=== PATIENT | male | born 1990 | race African-American/Black ===

== ENCOUNTER 2020-02-02 19:48 | Emergency (ER) | payer OTHER ==
[~2020-02-02] VITALS: Ht 167.7 cm; Wt 58.2 kg
[2020-02-02 19:58] VITALS: BP 161/81
--- NOTE | 2020-02-02 20:15 | Diagnostic Imaging Report ---
Indication: Right foot injury 3 views of the right foot show no fracture, dislocation or other acute abnormalities. IMPRESSION: Negative right foot Dictated by: Dictated on workstation # [id number]
--- NOTE | 2020-02-02 20:42 | ED Lower Extremity ---
General Chief Complaint: Lower Extremity Stated Complaint: RT FOOT/ANKLE PAIN Nursing Triage Note: pt states he wsa chasing his dog and tripped, pt rolled ankle and co right ankle and foot pain Nursing Sepsis Screen: No Definite Risk Source: patient Exam Limitations: no limitations History of Present Illness Date Seen by Provider: Feb 02, 2020 Time Seen by Provider: 19:57 Initial Comments This 29-year-old young man presents to the emergency room with right foot injury. A few hours ago he was smoking marijuana and chasing his dog through yard when he stepped in a hole and inverted his right foot. He has pain and swelling just distal to the lateral malleolus on the proximal foot. He has pain with ambulation. His ankle seems to be unaffected. He denies any other injury. Patient was noted to be tachycardic but he states he is rather anxious about being in the hospital setting. He denies being ill in any way. Patient reports prior right ankle injury. Onset: this evening Allergies and Home Medications Allergies Coded Allergies: Penicillins (Verified Allergy, Unknown, 02/02/20) Patient Home Medication List Home Medication List Reviewed: Yes Review of Systems Constitutional: no symptoms reported EENTM: no symptoms reported Respiratory: no symptoms reported Cardiovascular: no symptoms reported Gastrointestinal: no symptoms reported Genitourinary: no symptoms reported Musculoskeletal: see HPI Skin: no symptoms reported Psychiatric/Neurological: No Symptoms Reported Past Nfdcegs-Flijyx-Hbbrea Hx Past Med/Social Hx: Reviewed Nursing Past Med/Soc Hx Patient Social History Alcohol Use: Occasionally Uses Alcohol Beverage of Choice: Beer Recreational Drug Use: Yes Drug of Choice: marijuana Recent Foreign Travel: No Contact w/Someone Who Travel: No Recent Infectious Disease Expo: No Recent Hopitalizations: No Physical Abuse: No Sexual Abuse: No Mistreated: No Fear: No Seasonal Allergies Seasonal Allergies: No Past Medical History Surgeries: No Respiratory: No Cardiac: No Neurological: No Genitourinary: No Gastrointestinal: No Musculoskeletal: No Endocrine: No HEENT: No Cancer: No Psychosocial: No Integumentary: No Blood Disorders: No Physical Exam Vital Signs Vital Signs - First Documented 02/02/20 19:58 Temp 36.8 Pulse 120 Resp 16 B/P (MAP) 161/81 (107) Pulse Ox 99 O2 Delivery Room Air Capillary Refill : Less Than 3 Seconds Height, Weight, BMI Height: '" Weight: lbs. oz. kg; 20.00 BMI Method: General Appearance: WD/WN, no apparent distress HEENT: PERRL/EOMI, normal ENT inspection, other (Sclera watery and erythematous) Neck: normal inspection Cardiovascular: no edema, no murmur, tachycardia Respiratory: lungs clear, normal breath sounds, no respiratory distress Legs: right leg non-tender, right leg normal inspection, right leg normal range of motion, right leg no evidence of injury Ankles: right ankle non-tender, right ankle normal inspection, right ankle nor mal range of motion, right ankle no evidence of injury Feet: right foot pain, right foot soft tissue tenderness, right foot swelling, right foot other (There is an area 2 to 3 cm in diameter distal/anterior to the lateral malleolus that is swollen and tender to palpation. The ankle appears to be spared. 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 No bony injuries were identified. He appears to have a foot sprain. His foot and ankle were wrapped with Khalif bandage and crutches were dispensed. Work note provided. Diagnostic Imaging Diagonstic Imaging: Xray Plain Films/CT/US/NM/MRI: other (Right foot) Comments X-ray viewed by me and report reviewed. See report below: NAME: YOHANNES MARINO MED REC#: [id number] PT STATUS: REG ER : 1990 PHYSICIAN: EMI CARMICHAEL MD ADMIT DATE: 02/02/20/ER FS Signed Date of Exam:02/02/20 FOOT 3 VIEW RIGHT Indication: Right foot injury 3 views of the right foot show no fracture, dislocation or other acute abnormalities. IMPRESSION: Negative right foot Dictated by: Dictated on workstation # [id number] Dict: 02/02/202012 Trans: 02/02/202012 [id number] Interpreted by: JACQUE WHITE MD Electronically signed by: JACQUE WHITE MD 02/02/202012 Departure Impression Primary Impression: Sprain or strain of foot Disposition: HOME, SELF-CARE Condition: Improved Departure-Patient Inst. Decision time for Depature: 20:38 Referrals: NO,LOCAL PHYSICIAN (PCP/Family) Primary Care Physician Patient Instructions: Foot Sprain (DC), How to Use Crutches Add. Discharge Instructions: For primary pain control take either ibuprofen up to 600 mg every 6 hours or naproxen (Aleve) up to 500 mg every 12 hours as needed. You may add Tylenol (acetaminophen) up to 500 mg every 6 hours as needed for additional pain relief. Ice in 20-minute intervals and elevate as much as possible as long as there is pain and swelling. For the next few weeks wear a supportive brace that supports the area of pain and swelling whenever up and active. Also wear supportive shoes/boots with a good sole and ankle support. Use the crutches as needed. Gradually increase level of activity as pain allows. If you are not healing as anticipated over the next few days or if symptoms are worsening, follow-up either in the ER or with your primary care provider for further evaluation. Return to care or call if you have any other problems or concerns. All discharge instructions reviewed with patient and/or family. Voiced understanding. Work/School Note: Work Release Form Date Seen in the Emergency Department: Feb 02, 2020 Return to Work: Feb 04, 2020 Other Restrictions Listed Below: Gradually increase activity as pain allows. Brace for 3 weeks. EMI CARMICHAEL MD Feb 02, 2020 20:42
== END 2020-02-02 20:50 | disposition home or self-care (01) ==
LOC: EDUNIT# 19:48 → ER FS 19:51
DX: S93.691A Other sprain of right foot, initial encounter (principal); F41.9 Anxiety disorder, unspecified; Z88.0 Allergy status to penicillin; W18.42XA Slipping, tripping and stumbling without falling due to stepping into hole or opening, initial encounter
CPT/HCPCS: 73630

== ENCOUNTER 2021-09-28 20:56 | Emergency (ER) | payer BC ==
[~2021-09-28] VITALS: Ht 167.7 cm; Wt 56.2 kg
[2021-09-28] MEDS ORDERED: morphine INJ 10 MG/ML 1ML (SYR OR VIAL) IM STA (21:23)
[2021-09-28] MEDS ORDERED: ONDANSETRON 4 MG (ZOFRAN) ORAL DISSOLVE TAB PO STA (21:23)
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
[2021-09-28] MEDS ORDERED: CLINDAMYCIN 150 MG (CLEOCIN) CAP PO ONE (21:30)
[2021-09-28] MEDS ORDERED: TETANUS,DIPTH,PERTUSS P/F (BOOSTRIX) 0.5 ML VIAL IM ONE (21:30)
[2021-09-28] MEDS ORDERED: TRAM50TA3 PO (21:57)
[2021-09-28] MEDS ORDERED: CLIN150C20 PO (21:57)
[2021-09-28] MEDS ORDERED: IBUP-1773 PO (21:57)
[2021-09-28] MEDS ORDERED: RX-NAPROXEN (NAPROSYN) 250 MG TAB PPK#4 PO STA (22:03)
[2021-09-28 22:20] VITALS: BP 116/86
--- NOTE | 2021-09-28 22:23 | Diagnostic Imaging Report ---
INDICATION: Injury, pain EXAMINATION: Right ankle 09/28/2021 FINDINGS: 3 views of the ankle. There is a vague lucency along the lateral border of the medial malleolus likely due to superimposed osseous structures with no displaced fractures appreciated. Ankle mortise and talar dome appear intact. Soft tissues unremarkable. IMPRESSION: 1. Vague lucency along the medial malleolus seen on one view only likely due to superimposed osseous structures. If there is point tenderness, a 7-10 day followup recommended. Dictated by: Dictated on workstation # [id number]
== END 2021-09-28 22:22 | disposition home or self-care (01) ==
LOC: EDUNIT# 20:56 → ER FS 20:58
DX: S01.81XA Laceration without foreign body of other part of head, initial encounter (principal); S30.810A Abrasion of lower back and pelvis, initial encounter; S20.319A Abrasion of unspecified front wall of thorax, initial encounter; S80.812A Abrasion, left lower leg, initial encounter; S40.812A Abrasion of left upper arm, initial encounter; S40.811A Abrasion of right upper arm, initial encounter; F17.220 Nicotine dependence, chewing tobacco, uncomplicated; Z23 Encounter for immunization; V86.06XA Driver of dirt bike or motor/cross bike injured in traffic accident, initial encounter; Y92.410 Unspecified street and highway as the place of occurrence of the external cause
CPT/HCPCS: 73610; 90715